=== PATIENT | female | born 1950 | race Caucasian/White ===

== ENCOUNTER 2021-04-19 08:41 | Inpatient (IN) | payer OTHER, MEDICARE ==
[~2021-04-19] VITALS: Ht 167.6 cm; Wt 84.0 kg
[2021-04-19] VITALS (8 sets, daily range): BP systolic 149–211; BP diastolic 60–111
[2021-04-19 09:17] LABS: HEMATOCRIT 44.5 % (37.0-47.0); HEMOGLOBIN 15.4 gm/dL (12.0-15.0); MCH 32.1 pg (26.0-34.0); MCHC 34.7 g/dL (28.0-37.0); MCV 92.6 fL (80.0-100.0); MPV 7.4 fl. (7.2-11.1); NUCLEATED RBCS 0 /100WBC; PLATELET COUNT* 467 thou/uL (150-400); RBC 4.81 mil/uL (4.20-5.00); RDW-CV 13.5 % (10.5-14.5)
[2021-04-19 09:34] LABS: URINE BILIRUBIN NEGATIVE (Negative); URINE BLOOD TRACE (Negative); URINE CLARITY CLEAR; URINE COLOR YELLOW; URINE GLUCOSE-RANDOM TRACE (Negative); URINE KETONES NEGATIVE (Negative); URINE LEUKOCYTES-REFLEX NEGATIVE (Negative); URINE NITRITE-REFLEX NEGATIVE (Negative); URINE PROTEIN NEGATIVE (Negative); URINE SPECIFIC GRAVITY >= 1.030 (1.005-1.030); URINE UROBILINOGEN 0.2 E.U./dl (0.2-1.0)
[2021-04-19 09:38] LABS: CALCIUM 8.9 mg/dL (8.5-10.1); CREATININE 0.7 mg/dL (0.6-1.3); POTASSIUM 3.7 mmol/L (3.5-5.1)
[2021-04-19 09:43] LABS: ALBUMIN 3.5 g/dL (3.4-5.0); TOTAL BILIRUBIN 0.3 mg/dL (<0.1-1.0); TOTAL PROTEIN 7.7 g/dL (6.4-8.2)
[2021-04-19 09:46] LABS: ABSOLUTE LYMPHOCYTES 1.8 thou/uL (0.8-5.3); ABSOLUTE NEUTROPHILS 13.2 thou/uL (1.6-8.1); PLATELET ESTIMATE ADEQUATE
[2021-04-19] MEDS ORDERED: LIPITOR40 MG PO (10:01)
[2021-04-19] MEDS ORDERED: NORVASC5 MG PO (10:01)
[2021-04-19] MEDS ORDERED: LISINOPRIL-HCT1 EAC2 PO (10:01)
[2021-04-19 11:08] LABS: CHOLESTEROL 254 mg/dL (<200); HDL CHOLESTEROL 60 mg/dL (>40); LDL CHOLESTEROL 172 mg/dL (<100); SERUM ASSESSMENT Clear; TC:HDL 4.2 Ratio (Not establshd); TRIGLYCERIDE 114 mg/dL (<150); VLDL 23 mg/dL (<40)
--- NOTE | 2021-04-19 11:38 | NUR ---
PT MOVED TO HOSPITAL BED.
--- NOTE | 2021-04-19 18:13 | NUR ---
TURN TO RIGHT SIDE.
--- NOTE | 2021-04-19 20:30 | NUR ---
PTS VISITOR CAME OUT OF ROOM AND STATED THAT THE PT DID NOT LOOK GOOD AND ASKED FOR HELP. PRE BILLING CLINICIAN, KOFI INTO ROOM. PTS 02 SATURATIONS STARTED DROPPING. KOFI CALLED FOR HELP. THIS RN IN ANOTHER ROOM AT THE TIME. THIS RN INTO ROOM AFTER HEARING THE CALL FOR HELP AND FOR ANOTHER NURSE. CPR IN PROGRESS WHEN THIS RN ENTERED ROOM. 1 DOSE OF EPI GIVEN AT 2002. NEXT PULSE CHECK WAS AT 2004 STRONG RADIAL PULSE WAS ABLE TO BE PALPATED AT THAT TIME. PT INTUBATED AT 2009. FRIENDS AND EMERGENCY CONTACT NOTIFIED OF PTS CHANGE IN STATUS.
[2021-04-19 23:38] LABS: ABSOLUTE LYMPHOCYTES 0.9 thou/uL (0.8-5.3); ABSOLUTE MONOCYTES 1.6 thou/uL (0.0-1.2); BASOPHILS 0.2 %; EOSINOPHILS 0.2 %; HEMATOCRIT 41.4 % (37.0-47.0); HEMOGLOBIN 13.9 gm/dL (12.0-15.0); LYMPHOCYTES 5.1 %; MCH 31.7 pg (26.0-34.0); MCHC 33.5 g/dL (28.0-37.0); MCV 94.7 fL (80.0-100.0); MONOCYTES 9.1 %; MPV 7.3 fl. (7.2-11.1); NUCLEATED RBCS 0 /100WBC; PLATELET COUNT* 396 thou/uL (150-400); POLYS 85.4 %; RBC 4.37 mil/uL (4.20-5.00); RDW-CV 13.6 % (10.5-14.5); WBC 17.6 thou/uL (4.0-11.0)
[2021-04-19 23:50] LABS: CALCIUM 8.3 mg/dL (8.5-10.1); CREATININE 0.9 mg/dL (0.6-1.3); POTASSIUM 3.4 mmol/L (3.5-5.1)
[2021-04-20] VITALS (49 sets, daily range): BP systolic 124–211; BP diastolic 68–98
[2021-04-20 00:29] LABS: BE -2.4 mmol/L (-2 to +3); pH 7.423 (7.340-7.450)
[2021-04-20 04:43] LABS: ABSOLUTE BASOPHILS 0.1 thou/uL (0.0-0.2); ABSOLUTE LYMPHOCYTES 2.2 thou/uL (0.8-5.3); ABSOLUTE MONOCYTES 1.1 thou/uL (0.0-1.2); ABSOLUTE NEUTROPHILS 9.1 thou/uL (1.6-8.1); EOSINOPHILS 0.1 %; HEMATOCRIT 37.5 % (37.0-47.0); LYMPHOCYTES 17.7 %; MCH 32.3 pg (26.0-34.0); MCHC 34.6 g/dL (28.0-37.0); MCV 93.3 fL (80.0-100.0); MONOCYTES 8.6 %; MPV 7.3 fl. (7.2-11.1); NUCLEATED RBCS 0 /100WBC; PLATELET COUNT* 390 thou/uL (150-400); POLYS 72.6 %; RBC 4.02 mil/uL (4.20-5.00); RDW-CV 13.6 % (10.5-14.5); WBC 12.5 thou/uL (4.0-11.0)
--- NOTE | 2021-04-20 04:53 | NUR ---
RECIEVED PT FROM ER ARROUND 2245H, ON VENT AT 100%. ON VERSED AND WITH POSTURING NOTED. TALKED TO FRIENDS (JP AND ARIANNA), THEY DON'T KNOW IF HER BROTHER IS STILL ALIVE OR CONTACT NUMBER OF ANY FAMILY. FRIENDS ARE NURSES, AND WILL SEE IF THEY CAN GO TO HER HOUSE OR CALL HR WHERE SHE WORKS IF SHE HAVE DPOA OR ADVANCE DIRECTIVE. 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 THEY ALSO TOLD ME THAT PT DOESN'T WANT TO BE IN THIS KIND OF SITUATION. PULMO AWARE WITH ORDERS MADE AND AWARE PT IS OUT OF FOR CODE ICE. NEURO AWARE ABOUT PT'S STATUS AND OK WITH PROPOFOL ADDED SEDATION AND KEEP SPB 150-160. CONTINUE MONITORING AND TOWARDS GOALS. VERSED AT 3MG/HR AND PROPOFOL AT 20MICS. FIO2 DOWN TO 60%.
[2021-04-20 04:56] LABS: CALCIUM 8.3 mg/dL (8.5-10.1); CREATININE 0.8 mg/dL (0.6-1.3)
[2021-04-20 05:37] LABS: GLYCOHEMOGLOBIN (HGB A1C) 5.7 % (4.8-5.6)
[2021-04-20 10:27] LABS: BE -4.3 mmol/L (-2 to +3); PCO2 30.3 mmHg (35.0-45.0); pH 7.417 (7.340-7.450)
[2021-04-20 10:29] LABS: PO2 193.9 mmHg (75.0-100.0)
--- NOTE | 2021-04-20 12:46 | EKG ---
[place] [address] ELECTROCARDIOGRAM REPORT Name: OJ SANTANA Room: [address] ADM IN M.R.#: [id number] Admission: 04/19/21 Attend Phys: Suleman Tang, Discharge: Date of : 46 Date of Service: 04/19/21 0855 Report #: [id number] THIS REPORT FOR: //name// 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 /EPI
--- NOTE | 2021-04-20 12:49 | EKG ---
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[place] : 1950 Requested By: Andree Bunch Order Number: [id number] MD: Ravi Ghosh Measurements Intervals [place] Rate: 131 P: CA: QRS: -15 QRSD: 97 T: 85 QT: 385 QTc: 569 Interpretive Statements Sinus tachycardia Borderline left axis deviation Repol abnrm suggests ischemia, diffuse leads Prolonged QT interval Compared to ECG 04/19/2021 08:55:17 Sinus tachycardia now present Early repolarization now present Possible ischemia now present Prolonged QT interval now present Electronically Signed On 04-20-2021 12:49:28 CDT by Ravi Ghosh [email or web address] <ELECTRONICALLY SIGNED> By: Ravi Ghosh MD, [facility] 04/20/21 1249 12 12 Ravi Ghosh MD, [facility] /EPI
--- NOTE | 2021-04-20 18:36 | NUR ---
VENT SUPPORT CONTD, FIO2 DOWN TO 30% THIS SHIFT. PT OPENS EYES TO PAIN. MOVED LOWER EXTREMITIES BUT NO FOLLOWING OF COMMANDS DURING SEDATION VACATION THIS AM. VSS. PROPOFOL CONTD, AT 40 CURRENTLY. CTA DONE, REVEALED SMALL PEs, ELIQUIS STARTED. TUBE FEEDING STARTED AT 1300, GLUCERNA 1.2, TOLERATING SO FAR. JP (FRIEND) VISITED FOR FEW HOURS, UPDATED.
[2021-04-21] VITALS (29 sets, daily range): BP systolic 123–183; BP diastolic 63–89
--- NOTE | 2021-04-21 06:38 | NUR ---
ASSUMED CARE AT 1900H, ON VENT AT 30% AND TOLERATED. ON PROPOFOL DRIP AND TITRATED. PT POSTURING/WITHDRAWS TO PAIN AND OPENED EYES SLIGHTLY WHEN TURNING OR SUCTIONING. NOTED WITH OCCASIONAL INVOLUNTARY MOVEMENT/JERKING. IT WAS LESS FREQUENT WHEN VERSED RESTARTED. NO FEVER AND NO DISTRESS NOTED. UPDATE GIVEN TO FRIENDS. CONTINUE MONITORING AND TOWARDS GOALS. PROPOFOL AT 20MICS AND VERSED OFF.
[2021-04-21 07:03] LABS: HEMATOCRIT 38.9 % (37.0-47.0); HEMOGLOBIN 13.7 gm/dL (12.0-15.0); MCH 32.9 pg (26.0-34.0); MCHC 35.3 g/dL (28.0-37.0); MCV 93.2 fL (80.0-100.0); MPV 7.5 fl. (7.2-11.1); RBC 4.17 mil/uL (4.20-5.00); RDW-CV 13.4 % (10.5-14.5); WBC 9.4 thou/uL (4.0-11.0)
[2021-04-21 07:09] LABS: CALCIUM 8.7 mg/dL (8.5-10.1); CREATININE 0.7 mg/dL (0.6-1.3); POTASSIUM 3.8 mmol/L (3.5-5.1)
--- NOTE | 2021-04-21 08:59 | CON ---
[address] [address] CONSULTATION Name: OJ SANTANA Room: [address] IN M.R.#: [id number] Admission: 04/19/21 Attend Phys: Suleman Tang MD Discharge: Date of : 46 Report #: [id number] THIS REPORT FOR: cc: FAM - No family physician/PCP FAM - No family physician/PCP Ravi Ghosh MD [facility] ~ DATE OF CONSULTATION: 04/20/2021 CARDIOLOGY CONSULT INDICATION: Cardiopulmonary arrest. HISTORY OF PRESENT ILLNESS: The patient is a 70-year-old white female who was admitted through the Emergency Room with a probable stroke. The patient had not been heard from by friends, who alerted the police, who went to find the patient face down and with significantly altered mental status. There was loss of bowel and bladder continence. The patient was brought to the hospital where a CT scan suggested subacute posterior circulation stroke. The patient had minimal deficit at that time. The patient was noted much later in the day to have an episode of cyanosis and unresponsiveness. Sanjay stubbs was called. The patient received a single dose of epinephrine and chest compressions, at which time spontaneous circulation was achieved. The patient was intubated in this process and transported to the Emergency Room. The patient remains intubated and sedated at this time. She is hemodynamically stable. A followup CT of the head showed no significant changes. A CT of the chest is pending. PAST MEDICAL HISTORY: From the chart shows a history of type 2 diabetes mellitus, hypertension and chronic tobacco use. HOME MEDICATIONS: None. ALLERGIES: CODEINE. FAMILY HISTORY: Not obtained and/or unremarkable. SOCIAL HISTORY: The patient is a daily smoker. She does not drink alcohol. REVIEW OF SYSTEMS: Not obtainable at this time. PHYSICAL EXAMINATION: VITAL SIGNS: Blood pressure 187/88, pulse is 71. GENERAL: This is a moderately obese, sedated white female who appears stable. HEENT: Normocephalic, atraumatic. NECK: Shows no obvious jugular venous distention. There are no bruits. CHEST: Reveals reasonable air movement with slight [place] [address] CONSULTATION Name: OJ SANTANA Room: [address] IN [facility]#: [id number] Admission: 04/19/21 Attend Phys: Suleman Tang MD Discharge: Date of : 46 Report #: [id number] CARDIAC: Reveals a regular rhythm. I do not appreciate gallop or murmur. ABDOMEN: Reveals moderately protuberant abdomen with positive bowel sounds. EXTREMITIES: Examination of the extremities shows no edema. Peripheral pulses are 2+ and easily palpable. SKIN: Warm and dry. IMAGING DATA: A 12-lead EKG at the time of the event shows sinus tachycardia with diffuse ST segment depression suggestive of ischemia. Initial EKG showed normal sinus rhythm with no significant ST or T-wave abnormalities. Presently, on telemetry, the patient has sinus rhythm at a rate of [address] segment changes noted. Chest x-ray shows no acute cardiopulmonary abnormality. Labs are reviewed. Sodium 141, potassium 3.0, chloride 108, bicarbonate 23, BUN 6, creatinine 0.8, serum glucose 89. Initial troponin less than 0.06 x 2, then 0.08 and 0.09. Follow up troponin pending. NT-proBNP 561, total cholesterol 254, triglycerides 114, HDL 60, LDL 172. White blood cell count 12.5, hemoglobin 13.0, platelet count 390,000. IMPRESSION AND RECOMMENDATIONS: 1. Cardiopulmonary arrest. The patient had fairly rapid return of spontaneous circulation. I suspect this was a respiratory event. Once intubated, the patient's vital signs have become stable. Agree with echocardiogram. We will continue to check troponin. Doubt acute coronary syndrome at this time. 2. Dyslipidemia. The patient will be a candidate for a statin agent. We will need further workup to evaluate for underlying coronary artery disease. 3. Abnormal EKG at the time of cardiopulmonary arrest. She had diffuse ST segment depression suggestive of ischemia. With recovery, I would recommend further stress testing likely as an outpatient. 4. Cardiovascular accident. The patient is on antiplatelet therapy. We will obtain echocardiogram and further studies ordered, pending those results. 5. Hypertension. We will start p.r.n. hydralazine. 6. Type 2 diabetes mellitus. Per hospitalist. 7. Chronic tobacco use. Cessation will be advised. <ELECTRONICALLY SIGNED> By: Ravi Ghosh MD, FACC 04/21/21 0859 0910 1935Ravi Ghosh MD, FACC /nt
--- NOTE | 2021-04-21 10:29 | NUR ---
Patient admitted for CVA. Emergent intubation secondary to cyanosis completed in ED. Vent settings (FiO2 30% and peep 5). Neuro consult. Neuro planning MRI and MRA head/neck today. Cards consult. CTA shows small RUL PE's. Left VM for friend Haile ([phone]). Will complete CM assessment upon return call. CM to continue to follow
--- NOTE | 2021-04-21 13:22 | 2DMMODE ---
[place] [address] 2 D/M-MODE ECHOCARDIOGRAM Name: THELMA SANTANAY Room: [address] IN [place].#: [id number] Admission: 04/19/21 Attend Phys: Suleman Tang, Discharge: Date of : 46 Date of Service: 04/21/21 1322 Report #: [id number] THIS REPORT FOR: cc: MORTEZA - Chitra family physician/PCP MORTEZA - No family physician/PCP Bipin Deng MD [facility] ~ APPROVED REPORT Study performed: 04/21/2021 09:33:41 EXAM: Comprehensive 2D, Doppler, and color-flow Echocardiogram Patient Location: In-Patient Room #: 005 Status: routine BSA: 1.85 HR: 68 bpm BP: 180/85 mmHg Rhythm: NSR Other Information Study Quality: Good Indications CVA/TIA Echo Enhancing Agent Indication: Rule out Shunt Agent(s) / Amount(s) Used: Agitated Saline 10 cc 2D Dimensions IVSd: 11.48 (7-11mm) LVOT Diam: 20.32 (18-24mm) LVDd: 44.76 mm PWd: 10.32 (7-11mm) Ascending Ao: 31.73 (22-36mm) LVDs: 25.50 (25-40mm) Aortic Root: 32.21 mm Volumes Left Atrial Volume (Systole) LA ESV Index: 29.70 mL/m2 Aortic Valve AoV Peak Osmany.: 1.40 m/s AO Peak Gr.: 7.83 mmHg LVOT Max P.86 mmHg AO Mean Gr.: 4.38 mmHg LVOT Mean P.90 [place] [address] 2 D/M-MODE ECHOCARDIOGRAM Name: OJ SANTANA Room: [address] IN ..#: [id number] Admission: 04/19/21 Attend Phys: Suleman Tang, Discharge: Date of : 46 Date of Service: 04/21/21 1322 Report #: [id number] LVOT Max V: 1.21 m/s AO V2 VTI: 35.42 cm LVOT Mean V: 0.78 m/s FEDERICO (VTI): 2.87 cm2 LVOT V1 VTI: 31.36 cm Mitral Valve E/A Ratio: 0.75 MV Decel. Time: 335.65 ms MV E Max Osmany.: 0.75 m/s MV PHT: 97.34 ms MVA (PHT): 2.26 cm2 TDI E/Lateral E': 9.38 E/Medial E': 9.38 Medial E' Osmany.: 0.08 m/s Lateral E' Osmany.: 0.08 m/s Pulmonary Valve PV Peak Osmany.: 0.84 m/s PV Peak Gr.: 2.84 mmHg Left Ventricle The left ventricle is normal size. There is normal LV segmental wall motion. There is normal left ventricular wall thickness. Left ventricular systolic function is normal. The left ventricular ejection fraction is within the normal range. LVEF is 60-65%. Grade I - abnormal relaxation pattern. Right Ventricle The right ventricle is normal size. The right ventricular systolic function is normal. Atria The left atrium size is normal. The interatrial septum is intact with no evidence for an atrial septal defect. The right atrium size is normal. Aortic Valve The aortic valve is normal in structure. No aortic regurgitation is present. There is no aortic valvular stenosis. Mitral Valve The mitral valve is normal in structure. Mild mitral regurgitation. No evidence of mitral valve stenosis. Tricuspid Valve The tricuspid valve is normal in structure. Trace [place] [address] 2 D/M-MODE ECHOCARDIOGRAM Name: OJ SANTANA Room: [address] IN ..#: [id number] Admission: 04/19/21 Attend Phys: Suleman Tang, Discharge: Date of : 46 Date of Service: 04/21/21 1322 Report #: [id number] Pulmonic Valve The pulmonary valve is normal in structure. There is no pulmonic valvular regurgitation. Great Vessels The aortic root is normal in size. IVC is normal in size and collapses >50% with inspiration. Pericardium There is no pericardial effusion. <Conclusion> The left ventricle is normal size. There is normal left ventricular wall thickness. Left ventricular systolic function is normal. The left ventricular ejection fraction is within the normal range. LVEF is 60-65%. Grade I - abnormal relaxation pattern. The right ventricle is normal size. The left atrium size is normal. The aortic valve is normal in structure. The mitral valve is normal in structure. Mild mitral regurgitation. The tricuspid valve is normal in structure. IVC is normal in size and collapses >50% with inspiration. There is no pericardial effusion. There is normal LV segmental wall motion. The interatrial septum is intact with no evidence for an atrial septal defect. <ELECTRONICALLY SIGNED> By: Bipin Deng MD, FACC 04/21/21 1322 1322 132 Bipin Deng MD, FACC /INF
[2021-04-22] VITALS (15 sets, daily range): BP systolic 132–162; BP diastolic 64–84
[2021-04-22 02:58] LABS: ABSOLUTE BASOPHILS 0.2 thou/uL (0.0-0.2); ABSOLUTE LYMPHOCYTES 1.1 thou/uL (0.8-5.3); ABSOLUTE MONOCYTES 0.8 thou/uL (0.0-1.2); ABSOLUTE NEUTROPHILS 10.7 thou/uL (1.6-8.1); BASOPHILS 1.5 %; EOSINOPHILS 0.1 %; HEMOGLOBIN 13.5 gm/dL (12.0-15.0); LYMPHOCYTES 8.4 %; MCH 32.3 pg (26.0-34.0); MCHC 34.6 g/dL (28.0-37.0); MCV 93.3 fL (80.0-100.0); MONOCYTES 6.4 %; MPV 7.9 fl. (7.2-11.1); NUCLEATED RBCS 0 /100WBC; PLATELET COUNT* 425 thou/uL (150-400); POLYS 83.6 %; RBC 4.18 mil/uL (4.20-5.00); RDW-CV 13.9 % (10.5-14.5); WBC 12.8 thou/uL (4.0-11.0)
[2021-04-22 03:11] LABS: ALBUMIN 2.8 g/dL (3.4-5.0); APTT 26.3 Seconds (25.0-31.3); CALCIUM 9.2 mg/dL (8.5-10.1); CREATININE 0.8 mg/dL (0.6-1.3); INR 1.1; MAGNESIUM 2.1 mg/dL (1.8-2.4); POTASSIUM 3.9 mmol/L (3.5-5.1); PROTIME 11.7 Seconds (9.20-11.50); TOTAL BILIRUBIN 0.3 mg/dL (<0.1-1.0); TOTAL PROTEIN 6.3 g/dL (6.4-8.2)
[2021-04-22 03:15] LABS: PHOSPHORUS* 4.4 mg/dL (2.5-4.9)
--- NOTE | 2021-04-22 06:21 | NUR ---
ASSUMED PATIENT CARE AT 1900. ASSESSMENTS COMPLETED CHARTED. CARDIAC MONITORING IN PLACE. PATIENT TEMPERATURE INITIALLY ON LOWER SIDE DURING BEGINNING OF SHIFT. WARM BLANKETS AND ROZ HUGGER UTILIZED. PATIENT TEMPERATURE RECHECKED AND WITHIN NORMAL RANGE. HOURLY ROUNDING IN PLACE FOR PATIENT SAFETY. FALL PRECAUTIONS IN PLACE FOR PATIENT SAFETY. BED LOCKED AND IN LOWEST POSITION.
[2021-04-22 07:45] LABS: BE -1.5 mmol/L (-2 to +3); PCO2 30.6 mmHg (35.0-45.0); PO2 87.4 mmHg (75.0-100.0)
--- NOTE | 2021-04-22 13:19 | NUR ---
plan of care update. pt is on comfort care. pt will remain inpatient. family is at bedside.
--- NOTE | 2021-04-22 16:27 | NUR ---
PT EXTUBATED AT 1430, FRIENDS AND NIECE BY THE BEDSIDE. PT NOT IN DISTRESS, FATHER GILES PRAYED FOR HER. PT PEACEFULLY AT 1459. MTN NOTIFIED.
--- NOTE | 2021-04-27 19:44 | EEG ---
[address] [address] EEG STUDY REPORT Name: OJ SANTANA Room: [address] IN M.R.#: [id number] Admission: 04/19/21 Attend Phys: Suleman Tang MD Discharge: 04/22/21 Date of : 46 Report #: [id number] THIS REPORT FOR: cc: FAM - No family physician/PCP FAM - No family physician/PCP Abhilash Dumont MD ~ DATE OF SERVICE: 04/22/2021 This patient is being evaluated for altered mental status. EEG was done when the patient is on propofol. EEG is disorganized and poorly formed. Background activity is only about 3-4 Hz, but it does go higher in between. It shows persistent bilateral sharper activity, which is difficult to separate from artifact. It is real, that may represent seizure activity. Photic stimulation is unremarkable. IMPRESSION: This is an abnormal EEG because it is disorganized and poorly formed. That can occur with encephalopathy, effect of psychotropic medication, dementia, etc. Activity suggestive of seizure activity also appeared to be present, but that is difficult to separate from artifact. Thank you very much for this referral. <ELECTRONICALLY SIGNED> By: Abhilash Dumont MD 04/27/21 1944 1131 [id number] Dumont MD /nt
== END 2021-04-22 14:59 | DRG 64 ==
LOC: M.ERS 08:41 → M.ICU 09:19 → M.TBA-ER 09:19 → M.ICU 21:26
PROVIDERS: Family Medicine; Internal Medicine; Internal Medicine Critical Care Medicine; Pediatrics; Personal Emergency Response Attendant; Psychiatry & Neurology Neurology; ADMIT Internal Medicine; ATTEND Internal Medicine
PROC: 5A1945Z Respiratory Ventilation, 24-96 Consecutive Hours (ICD-10-PCS; principal; 2021-04-19)
PROC: 5A12012 Performance of Cardiac Output, Single, Manual (ICD-10-PCS; principal; 2021-04-19)
PROC: 0BH17EZ Insertion of Endotracheal Airway into Trachea, Via Natural or Artificial Opening (ICD-10-PCS; principal; 2021-04-19)
DX: I63.89 Other cerebral infarction (principal); J96.01 Acute respiratory failure with hypoxia; G93.41 Metabolic encephalopathy; I26.99 Other pulmonary embolism without acute cor pulmonale; I67.82 Cerebral ischemia; I46.9 Cardiac arrest, cause unspecified; Z51.5 Encounter for palliative care; E78.5 Hyperlipidemia, unspecified; D72.829 Elevated white blood cell count, unspecified; I10 Essential (primary) hypertension; E11.65 Type 2 diabetes mellitus with hyperglycemia; F17.210 Nicotine dependence, cigarettes, uncomplicated; Z20.822 Contact with and (suspected) exposure to COVID-19; R47.1 Dysarthria and anarthria; R29.810 Facial weakness; I65.1 Occlusion and stenosis of basilar artery; Z79.899 Other long term (current) drug therapy; Z88.5 Allergy status to narcotic agent; Z71.6 Tobacco abuse counseling